=== PATIENT | female | born 1970 | race Caucasian/White ===

== ENCOUNTER 2016-04-20 10:57 | Emergency (ER) | payer OTHER ==
[2016-04-20] MEDS ORDERED: LABETALOL HCL 100 MG/20 ML VIAL As Ordered ONE (11:22)
[2016-04-20] MEDS ORDERED: ASPIRIN 81 MG CHEW TABLET As Ordered ONE (11:22)
[2016-04-20 11:27] LABS: BASO # 0.1 K/mm3 (0.0-0.2); EOS # 0.1 K/mm3 (0.0-0.50); EOS % 3.2 % (0.0-3.0); LARGE UNSTAINED CELL # 0.1 K/mm3 (0.0-0.4); LYMPH # 1.7 K/mm3 (1.5-4.5); LYMPH % 36.1 % (24.0-44.0); MEAN CORPUSCULAR HEMOGLOBIN 31.4 pg (27.0-33.0); MONO # 0.2 K/mm3 (0.0-0.8); MONO % 5.5 % (0.0-5.0); NEUTROPHILS # 2.3 K/mm3 (1.8-7.7); NEUTROPHILS % 51.2 % (36.0-66.0); PLATELET COUNT, AUTOMATED 254 k/mm3 (150-450); RED CELL DISTRIBUTION WIDTH 13.9 % (11.5-14.5); WHITE BLOOD COUNT 4.4 K/mm3 (4.0-10.0)
--- NOTE | 2016-04-20 11:47 | REP ---
Portable chest x-ray: Single view. History: Chest pain. Findings: EKG monitoring electrodes overlie the chest. The lungs are symmetrically aerated and clear. The pleural angles are sharp. Heart is not enlarged. Pulmonary vasculature is not increased. Impression: Negative portable chest x-ray. Signed by Kenneth Gatica MD 04/20/2016 02:58 P
[2016-04-20 11:49] LABS: ANION GAP 6 MEQ/L (8-16); BLOOD UREA NITROGEN 11 MG/DL (7-18); CALCIUM LEVEL 8.7 MG/DL (8.5-10.1); CARBON DIOXIDE LEVEL 28 MEQ/L (21-32); CHLORIDE LEVEL 105 MEQ/L (98-107); GLOMERULAR FILTRATION RATE > 60.0 (>58); GLUCOSE, FASTING 110 MG/DL (70-105); POTASSIUM SERUM 3.6 MEQ/L (3.5-5.1); SODIUM LEVEL 139 MEQ/L (136-145)
--- NOTE | 2016-04-20 13:05 | EDDOCDS ---
Nurse's Notes [facility] Name: Jerica Jernigan Age: 45 yrs Sex: Female : 1970 Arrival Date: 04/20/2016 Time: 10:57 Bed 10 Private MD: Merlene Page D Diagnosis: Other chest pain;Essential (primary) hypertension Presentation: 04/20 11:00 Presenting complaint: Patient states: Chest pain starting at 1030am today, also having dwg left arm achiness. Aspirin was not taken prior to arrival. Adult Sepsis Screening: The patient does not have new or worsening altered mentation. Patient's respiratory rate is less than 22. Systolic blood pressure is greater than 100. Patient has a qSOFA score of 0- Negative Sepsis Screen. Suicide/Homicide risk assessment- the patient denies having any suicidal and/or homicidal ideations and does not present with any other emotional, behavioral or mental health complaints. Status: Patient is not a library services assistant or dependent. Transition of care: patient was not received from another setting of care. Red Flag criteria, patient assessed and taken directly to a bed. 11:00 Acuity: JASPAL Level 2 dwg 11:00 Method Of Arrival: Walkin/Carried/Asstd dwg Triage Assessment: 11:03 General: Appears in no apparent distress, uncomfortable. Pain: Pain currently is 4 out dwg of 10 on a pain scale. HIV screening NA for this visit Offered previously. 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 Tylenol 325 mg Oral tab 2 tabs prn (Last dose: 04/20/2016 09:00) 2. Flonase 50 mcg/actuation Nasal spsn 1 spray 2 times per day (Last dose: 04/20/2016 09:00) - PMHx: Seasonal/environmental allergies; - PSHx: none; - Social history: Smoking status: Patient states was never smoker of tobacco. No barriers to communication noted, The patient speaks fluent German. - Family history: Not pertinent. - : The pt / caregiver states he / she is not on anticoagulants. Home medication list is obtained from the patient. - Exposure Risk Screening:: None identified. Screenin:17 Screening information is obtained from the patient. Fall risk: No risks identified. kr3 Assistance ADL's: requires no assistance with activities of daily living. Abuse/DV Screen: The patient / caregiver reports he/she is: not in a situation that causes fear, pain or injury. Nutritional screening: No deficits noted. Advance Directives: Currently, there is no health care proxy. home support is adequate. Assessment: 11:15 General: Appears comfortable, Behavior is anxious, cooperative. Pain: Location: chest kr3 Pain currently is 0 out of 10 on a pain scale. At worst was 5 out of 10 on a pain scale. Pain radiates to left arm. Pain: Quality of pain is described as aching, numbness. Cardiovascular: Rhythm is regular. Respiratory: Respiratory effort is even, unlabored. Derm: Skin is normal. 12:20 Reassessment: Patient appears in no apparent distress at this time. Patient states kr3 feeling better. 13:03 Reassessment: Patient appears in no apparent distress at this time. Patient states kr3 feeling better. Neurological: No deficits noted. Respiratory: Respiratory effort is even, unlabored. Derm: Skin is normal. Vital Signs: 11:00 BP 199 / 112; Pulse 79; Resp 18; Temp 98.0; Pulse Ox 95% ; Weight 88.9 kg; Height 5 ft. elp 7 in. (170.18 cm); Pain 4/10; 11:43 BP 179 / 113; Pulse 64; kr3 12:28 BP 165 / 93 (auto/); kr3 12:29 Pulse 56 MON; Pulse Ox 95% ; kr3 13:02 BP 149 / 79; Pulse 58; Resp 16; Temp 98.1(O); Pulse Ox 96% on R/A; Pain 1/10; kr3 11:00 Body Mass Index 30.70 (88.90 kg, 170.18 cm) elp Vitals: 11:00 Log In Time: April 20, 2016 at 10:59. RN notified that patient meets Red Flag elp criteria. ED Course: 10:59 Patient visited by Catalina Meadows PCA. elp 10:59 Patient moved to Waiting elp 11:00 Merlene Page is Private Physician. elp 11:00 Patient visited by Catalina Meadows PCA. elp 11:01 Triage Initiated dwg 11:03 Patient moved to 10 dw 11:08 Seth Mccoy PA is PHCP. btw 11:08 Tammi Mayer MD is Attending Physician. btw 11:09 Patient visited by Seth Mccoy PA. btw 11:12 Patient visited by Nikita Jones PCA. jrd 11:12 Pt greeted and oriented to ED. Patient advised of names of staff involved in care, jrd location of call mejias, wait times and NPO status. Accompanied by Patient has correct armband on for positive identification. Placed in gown. Bed in low position. Call light in reach. Side rails up X2. campus monitor on. Pulse ox on. NIBP on. 11:12 EKG done. (by ED staff). Reviewed by Seth FOX. jrd 11:15 Basic Metabolic Profile Sent. kr3 11:15 CBC with Diff Sent. kr3 11:15 Cardiac Injury Profile Sent. kr3 11:15 Troponin Sent. kr3 11:15 Inserted saline lock: 20 gauge in left antecubital area and blood collected. kr3 11:17 The patient / caregiver is instructed regarding the plan of care and ED course. kr3 11:37 [facility] [place] was scanned into [employer] and attached to record. lg 11:44 Patient visited by Monica Viveros RN. kr3 12:07 portable chest Returned. EDMS 12:39 Merlene Page is Referral Physician. btw 13:01 No procedures done that require assistance. kr3 13:03 Discontinued lock intact, bleeding controlled, pressure dressing applied, No kr3 redness/swelling at site. Administered Medications: 11:27 Drug: Aspirin 324 mg [aspirin 81 mg chewable tablet (4 tabs)] Route: PO; kr3 11:28 Drug: Labetalol 10 mg [labetalol 5 mg/mL intravenous solution (2 mL)] Route: IVP; Rate: kr3 bolus; Infused Over: 2 mins; Site: right antecubital; 11:43 Follow up: BP 179 / 113; Pulse 64 bpm kr3 Order Results: Lab Order: Basic Metabolic Profile; SPEC'M 04/20/16 11:13 Test: GLUCOSE, FASTING; Value: 110; Range: 70-105; Abnormal: Above high normal; Units: MG/DL; Status: F Test: BLOOD UREA NITROGEN; Value: 11; Range: 7-18; Units: MG/DL; Status: F Test: CREATININE FOR GFR; Value: 0.90; Range: 0.55-1.02; Units: MG/DL; Status: F Test: GLOMERULAR FILTRATION RATE; Value: > 60.0; Range: >58; Status: F Test: SODIUM LEVEL; Value: 139; Range: 136-145; Units: MEQ/L; Status: F Test: POTASSIUM SERUM; Value: 3.6; Range: 3.5-5.1; Units: MEQ/L; Status: F Test: CHLORIDE LEVEL; Value: 105; Range: 98-107; Units: MEQ/L; Status: F Test: CARBON DIOXIDE LEVEL; Value: 28; Range: 21-32; Units: MEQ/L; Status: F Test: ANION GAP; Value: 6; Range: 8-16; Abnormal: Below low normal; Units: MEQ/L; Status: F Test: CALCIUM LEVEL; Value: 8.7; Range: 8.5-10.1; Units: MG/DL; Status: F Test Note: ; Units are mL/min/1.73 m2 Chronic Kidney Disease Staging per NKF: Stage I & II GFR >=60 Normal to Mildly Decreased Stage III GFR 30-59 Moderately Decreased Stage IV GFR 15-29 Severely Decreased Stage V GFR <15 Very Little GFR Left ESRD GFR <15 on ORDINARY SEAMAN Lab Order: CBC with Diff; SPEC'M 04/20/16 11:13 Test: WHITE BLOOD COUNT; Value: 4.4; Range: 4.0-10.0; Units: K/mm3; Status: F Test: RED BLOOD COUNT; Value: 4.30; Range: 4.00-5.40; Units: M/mm3; Status: F Test: HEMOGLOBIN; Value: 13.5; Range: 12.0-16.0; Units: g/dl; Status: F Test: HEMATOCRIT; Value: 40.8; Range: 36.0-47.0; Units: %; Status: F Test: MEAN CORPUSCULAR VOLUME; Value: 95.0; Range: 80.0-96.0; Units: fl; Status: F Test: MEAN CORPUSCULAR HEMOGLOBIN; Value: 31.4; Range: 27.0-33.0; Units: pg; Status: F Test: MEAN CORPUSCULAR HGB CONC; Value: 33.0; Range: 32.0-36.5; Units: g/dl; Status: F Test: RED CELL DISTRIBUTION WIDTH; Value: 13.9; Range: 11.5-14.5; Units: %; Status: F Test: PLATELET COUNT, AUTOMATED; Value: 254; Range: 150-450; Units: k/mm3; Status: F Test: NEUTROPHILS %; Value: 51.2; Range: 36.0-66.0; Units: %; Status: F Test: LYMPH %; Value: 36.1; Range: 24.0-44.0; Units: %; Status: F Test: MONO %; Value: 5.5; Range: 0.0-5.0; Abnormal: Above high normal; Units: %; Status: F Test: EOS %; Value: 3.2; Range: 0.0-3.0; Abnormal: Above high normal; Units: %; Status: F Test: BASO %; Value: 2.0; Range: 0.0-1.0; Abnormal: Above high normal; Units: %; Status: F Test: LARGE UNSTAINED CELL %; Value: 2.0; Range: 0.0-4.0; Units: %; Status: F Test: NEUTROPHILS #; Value: 2.3; Range: 1.8-7.7; Units: K/mm3; Status: F Test: LYMPH #; Value: 1.7; Range: 1.5-4.5; Units: K/mm3; Status: F Test: MONO #; Value: 0.2; Range: 0.0-0.8; Units: K/mm3; Status: F Test: EOS #; Value: 0.1; Range: 0.0-0.50; Units: K/mm3; Status: F Test: BASO #; Value: 0.1; Range: 0.0-0.2; Units: K/mm3; Status: F Test: LARGE UNSTAINED CELL #; Value: 0.1; Range: 0.0-0.4; Units: K/mm3; Status: F Lab Order: Cardiac Injury Profile; SPEC'M 04/20/16 11:13 Test: CPK CREATINE PHOSPHOKINASE; Value: 71; Range: 26-192; Units: U/L; Status: F Test: CK-MB VALUE MASS; Value: 1.0; Range: 0.0-3.6; Units: NG/ML; Status: F Test: MB/CK RELATIVE INDEX; Value: 1.40; Range: < OR =4; Status: F Test Note: ; DIAGNOSIS CRITERIA MMB ng/ml Relative Index (RI) NON-AMI < or = 5 N/A VO ZONE > 5 < or = 4 AMI > 5 > 4 Lab Order: Troponin; SPEC'M 04/20/16 11:13 Test: TROPONIN I; Value: < 0.02; Range: < 0.10; Units: NG/ML; Status: F Test Note: ; Troponin I Reference Interval for ApeniMED LOCI: 99th Percentile= 0.00-0.045 ng/ml Risk Stratification: <= 0.10 ng/ml Decreased Risk for Adverse Clinical Events. 0.10-1.50 ng/ml Increased Risk for Adverse Clinical Events. Evaluation of additional criterion and/or repeat testing in 2-6 hours is suggested to rule out myocardial damage. >= 1.50 ng/ml Indicative of Myocardial Injury. Radiology Order: portable chest Test: portable chest REASON FOR EXAMINATION: Chest Pain; Portable chest x-ray: Single view.; ; History: Chest pain.; ; Findings: EKG monitoring electrodes overlie the chest. The lungs are; symmetrically aerated and clear. The pleural angles are sharp. Heart is not; enlarged. Pulmonary vasculature is not increased.; ; Impression:; ; Negative portable chest x-ray.; ; ; ; ; Unreviewed; Outcome: 12:39 Discharge ordered by Provider. btw 13:02 Discharge Assessment: patient administered narcotics - no. The following High Risk kr3 Discharge criteria are identified: None. Discharged to home ambulatory, with family. Condition: improved. Discharge instructions given to patient, Instructed on discharge instructions, follow up and referral plans. medication usage, Demonstrated understanding of instructions, medications, Pt was receptive of discharge instructions/ teaching. Prescriptions given X 1, Work note provided to patient. No special radiology studies were completed. Property sent home with patient. 13:03 Patient left the ED. kr3 Signatures: Dispatcher [facility] Rafal Mariee RN RN Dylan Alvarez, Monica Werner lg,RN RN kr3 Seth Mccoy, RUDDY PA btw Abdiel, Catalina, ACID CUTTER ACID CUTTER elp Nikita Jones, ACID CUTTER ACID CUTTER jrd MTDD
--- NOTE | 2016-04-20 13:05 | EDDOCDS ---
Physician Documentation [facility] Name: Jerica Jernigan Age: 45 yrs Sex: Female : 1970 Arrival Date: 04/20/2016 Time: 10:57 Bed 10 Private MD: Merlene Page D Disposition: 04/20/16 12:39 Discharged to Home/Self Care. Impression: Other chest pain, Essential (primary) hypertension. - Condition is Stable. - Discharge Instructions: Nonspecific Chest Pain, Hypertension, Managing Your High Blood Pressure. - Prescriptions for Lisinopril 10 mg Oral Tablet - take 1 tablet by ORAL route once daily; 20 tablet. - Medication Reconciliation, Local Pharmacy Hours form. - Follow up: Merlene Page; When: Call to arrange an appointment; Reason: Further diagnostic work-up, Recheck today's complaints, Continuance of care. - Problem is new. - Symptoms are unchanged. Historical: - Allergies: Amoxicillin; - Home Meds: 1. Tylenol 325 mg Oral tab 2 tabs prn (Last dose: 04/20/2016 09:00) 2. Flonase 50 mcg/actuation Nasal spsn 1 spray 2 times per day (Last dose: 04/20/2016 09:00) - PMHx: Seasonal/environmental allergies; - PSHx: none; - Social history: Smoking status: Patient states was never smoker of tobacco. No barriers to communication noted, The patient speaks fluent Portuguese. - Family history: Not pertinent. - : The pt / caregiver states he / she is not on anticoagulants. Home medication list is obtained from the patient. - Exposure Risk Screening:: None identified. RIB PULLER: 04/20 11:03 LMP 04/16/2016 [facility] Vital Signs: 11:00 BP 199 / 112; Pulse 79; Resp 18; Temp 98.0; Pulse Ox 95% ; Weight 88.9 kg / 195.99 lbs; elp Height 5 ft. 7 in. (170.18 cm); Pain 4/10; 11:43 BP 179 / 113; Pulse 64; kr3 12:28 BP 165 / 93 (auto/); kr3 12:29 Pulse 56 MON; Pulse Ox 95% ; kr3 13:02 BP 149 / 79; Pulse 58; Resp 16; Temp 98.1(O); Pulse Ox 96% on R/A; Pain 10; kr3 11:00 Body Mass Index 30.70 (88.90 kg, 170.18 cm) elp MDM: 11:04 Donor Services Team Leader/Pulse Ox/q 30 min VS ordered. sd1 11:04 IV Saline Lock ordered. sd1 11:04 Rhythm Strip to chart ordered. sd1 11:04 Undress patient appropriately for examination ordered. sd1 11:05 portable chest Ordered. EDMS 11:05 Basic Metabolic Profile Ordered. EDMS 11:06 CBC with Diff Ordered. EDMS 11:06 Cardiac Injury Profile Ordered. EDMS 11:06 Troponin Ordered. EDMS 11:06 ECG WITH READING ER PHYS+CARDIAG ordered. EDMS 11:18 Aspirin 324 mg PO once ordered. btw 11:18 Labetalol 10 mg IVP at bolus once over 2 mins ordered. btw 11:28 Financial registration complete. lg 11:37 [facility] Payment Agreement was scanned into [employer] and attached to record. lg 11:52 Basic Metabolic Profile Reviewed. btw 11:52 CBC with Diff Reviewed. btw 11:52 Cardiac Injury Profile Reviewed. btw 11:52 Troponin Reviewed. btw Administered Medications: 11:27 Drug: Aspirin 324 mg [aspirin 81 mg chewable tablet (4 tabs)] Route: PO; kr3 11:28 Drug: Labetalol 10 mg [labetalol 5 mg/mL intravenous solution (2 mL)] Route: IVP; Rate: kr3 bolus; Infused Over: 2 mins; Site: right antecubital; 11:43 Follow up: BP 179 / 113; Pulse 64 bpm kr3 Signatures: Dispatcher [employer] [facility] Tammi Mayer MD MD sd1 Rafal Marley, RN RN Dylan Alvarez, Manfred Reg lg Monica Viveros RN RN kr3 Seth Mccoy PA PA btw The chart was reviewed and I authenticate all verbal orders and agree with the evaluation and treatment provided.Attachments: 11:37 [facility] Payment Agreement lg MTDD
--- NOTE | 2016-04-21 07:18 | ECGEPIP ---
Stationary ECG Study [facility] - ED Test Date: 2016-04-20 Pat Name: ANITA BRITO Department: Room: - Gender: F Microbiological Analyst: lucinda : 1970 Requested By: Tammi Mayer Order Number: [id number] Reading MD: Tammi Mayer Measurements Intervals [place] Rate: 79 P: 52 ND: 144 QRS: 47 QRSD: 94 T: 7 QT: 380 QTc: 437 Interpretive Statements SINUS RHYTHM NO PRIOR FOR COMPARISON Electronically Signed On 04-21-2016 7:17:52 EST by Tammi Mayer
--- NOTE | 2016-04-22 14:05 | EDDOCDS ---
Nurse's Notes [facility] Name: Jerica Jernigan Age: 45 yrs Sex: Female : 1970 Arrival Date: 04/20/2016 Time: 10:57 Bed 10 Private MD: Merlene Page D Diagnosis: Other chest pain;Essential (primary) hypertension Presentation: 04/20 11:00 Presenting complaint: Patient states: Chest pain starting at 1030am today, also having dwg left arm achiness. Aspirin was not taken prior to arrival. Adult Sepsis Screening: The patient does not have new or worsening altered mentation. Patient's respiratory rate is less than 22. Systolic blood pressure is greater than 100. Patient has a qSOFA score of 0- Negative Sepsis Screen. Suicide/Homicide risk assessment- the patient denies having any suicidal and/or homicidal ideations and does not present with any other emotional, behavioral or mental health complaints. Status: Patient is not a food service specialist or dependent. Transition of care: patient was not received from another setting of care. Red Flag criteria, patient assessed and taken directly to a bed. 11:00 Acuity: JASPAL Level 2 dwg 11:00 Method Of Arrival: Walkin/Carried/Asstd dwg Triage Assessment: 11:03 General: Appears in no apparent distress, uncomfortable. Pain: Pain currently is 4 out dwg of 10 on a pain scale. HIV screening NA for this visit Offered previously. 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 Tylenol 325 mg Oral tab 2 tabs prn (Last dose: 04/20/2016 09:00) 2. Flonase 50 mcg/actuation Nasal spsn 1 spray 2 times per day (Last dose: 04/20/2016 09:00) - PMHx: Seasonal/environmental allergies; - PSHx: none; - Social history: Smoking status: Patient states was never smoker of tobacco. No barriers to communication noted, The patient speaks fluent Austrian. - Family history: Not pertinent. - : The pt / caregiver states he / she is not on anticoagulants. Home medication list is obtained from the patient. - Exposure Risk Screening:: None identified. Screenin:17 Screening information is obtained from the patient. Fall risk: No risks identified. kr3 Assistance ADL's: requires no assistance with activities of daily living. Abuse/DV Screen: The patient / caregiver reports he/she is: not in a situation that causes fear, pain or injury. Nutritional screening: No deficits noted. Advance Directives: Currently, there is no health care proxy. home support is adequate. Assessment: 11:15 General: Appears comfortable, Behavior is anxious, cooperative. Pain: Location: chest kr3 Pain currently is 0 out of 10 on a pain scale. At worst was 5 out of 10 on a pain scale. Pain radiates to left arm. Pain: Quality of pain is described as aching, numbness. Cardiovascular: Rhythm is regular. Respiratory: Respiratory effort is even, unlabored. Derm: Skin is normal. 12:20 Reassessment: Patient appears in no apparent distress at this time. Patient states kr3 feeling better. 13:03 Reassessment: Patient appears in no apparent distress at this time. Patient states kr3 feeling better. Neurological: No deficits noted. Respiratory: Respiratory effort is even, unlabored. Derm: Skin is normal. Vital Signs: 11:00 BP 199 / 112; Pulse 79; Resp 18; Temp 98.0; Pulse Ox 95% ; Weight 88.9 kg; Height 5 ft. elp 7 in. (170.18 cm); Pain 4/10; 11:43 BP 179 / 113; Pulse 64; kr3 12:28 BP 165 / 93 (auto/); kr3 12:29 Pulse 56 MON; Pulse Ox 95% ; kr3 13:02 BP 149 / 79; Pulse 58; Resp 16; Temp 98.1(O); Pulse Ox 96% on R/A; Pain 1/10; kr3 11:00 Body Mass Index 30.70 (88.90 kg, 170.18 cm) elp Vitals: 11:00 Log In Time: April 20, 2016 at 10:59. RN notified that patient meets Red Flag elp criteria. ED Course: 10:59 Patient visited by Catalina Meadows PCA. elp 10:59 Patient moved to Waiting elp 11:00 Merlene Page is Private Physician. elp 11:00 Patient visited by Catalina Meadows PCA. elp 11:01 Triage Initiated dwg 11:03 Patient moved to 10 dw 11:08 Seth Mccoy PA is PHCP. btw 11:08 Tammi Mayer MD is Attending Physician. btw 11:09 Patient visited by Seth Mccoy PA. btw 11:12 Patient visited by Nikita Jones PCA. jrd 11:12 Pt greeted and oriented to ED. Patient advised of names of staff involved in care, jrd location of call mejias, wait times and NPO status. Accompanied by Patient has correct armband on for positive identification. Placed in gown. Bed in low position. Call light in reach. Side rails up X2. teletypesetter monitor on. Pulse ox on. NIBP on. 11:12 EKG done. (by ED staff). Reviewed by Seth FOX. jrd 11:15 Basic Metabolic Profile Sent. kr3 11:15 CBC with Diff Sent. kr3 11:15 Cardiac Injury Profile Sent. kr3 11:15 Troponin Sent. kr3 11:15 Inserted saline lock: 20 gauge in left antecubital area and blood collected. kr3 11:17 The patient / caregiver is instructed regarding the plan of care and ED course. kr3 11:37 [facility] [place] [place] Agreement was scanned into [employer] and attached to record. lg 11:44 Patient visited by Monica Viveros RN. kr3 12:07 portable chest Returned. EDMS 12:39 Merlene Page is Referral Physician. btw 13:01 No procedures done that require assistance. kr3 13:03 Discontinued lock intact, bleeding controlled, pressure dressing applied, No kr3 redness/swelling at site. 14:47 T-Sheet-- Draft Copy was scanned into [employer] and attached to record. gb 14:48 ECG/EKG was scanned into [employer] and attached to record. gb 14:48 Trend VS was scanned into [employer] and attached to record. gb 04/21 07:52 EKG-ADULT Returned. EDMS Administered Medications: 04/20 11:27 Drug: Aspirin 324 mg [aspirin 81 mg chewable tablet (4 tabs)] Route: PO; kr3 11:28 Drug: Labetalol 10 mg [labetalol 5 mg/mL intravenous solution (2 mL)] Route: IVP; Rate: kr3 bolus; Infused Over: 2 mins; Site: right antecubital; 11:43 Follow up: BP 179 / 113; Pulse 64 bpm kr3 Attachments: 14:48 Trend VS gb Order Results: Lab Order: Basic Metabolic Profile; SPEC'04/20/16 11:13 Test: GLUCOSE, FASTING; Value: 110; Range: 70-105; Abnormal: Above high normal; Units: MG/DL; Status: F Test: BLOOD UREA NITROGEN; Value: 11; Range: 7-18; Units: MG/DL; Status: F Test: CREATININE FOR GFR; Value: 0.90; Range: 0.55-1.02; Units: MG/DL; Status: F Test: GLOMERULAR FILTRATION RATE; Value: > 60.0; Range: >58; Status: F Test: SODIUM LEVEL; Value: 139; Range: 136-145; Units: MEQ/L; Status: F Test: POTASSIUM SERUM; Value: 3.6; Range: 3.5-5.1; Units: MEQ/L; Status: F Test: CHLORIDE LEVEL; Value: 105; Range: 98-107; Units: MEQ/L; Status: F Test: CARBON DIOXIDE LEVEL; Value: 28; Range: 21-32; Units: MEQ/L; Status: F Test: ANION GAP; Value: 6; Range: 8-16; Abnormal: Below low normal; Units: MEQ/L; Status: F Test: CALCIUM LEVEL; Value: 8.7; Range: 8.5-10.1; Units: MG/DL; Status: F Test Note: ; Units are mL/min/1.73 m2 Chronic Kidney Disease Staging per NKF: Stage I & II GFR >=60 Normal to Mildly Decreased Stage III GFR 30-59 Moderately Decreased Stage IV GFR 15-29 Severely Decreased Stage V GFR <15 Very Little GFR Left ESRD GFR <15 on RETAIL LOSS PREVENTION SPECIALIST Lab Order: CBC with Diff; SPEC'04/20/16 11:13 Test: WHITE BLOOD COUNT; Value: 4.4; Range: 4.0-10.0; Units: K/mm3; Status: F Test: RED BLOOD COUNT; Value: 4.30; Range: 4.00-5.40; Units: M/mm3; Status: F Test: HEMOGLOBIN; Value: 13.5; Range: 12.0-16.0; Units: g/dl; Status: F Test: HEMATOCRIT; Value: 40.8; Range: 36.0-47.0; Units: %; Status: F Test: MEAN CORPUSCULAR VOLUME; Value: 95.0; Range: 80.0-96.0; Units: fl; Status: F Test: MEAN CORPUSCULAR HEMOGLOBIN; Value: 31.4; Range: 27.0-33.0; Units: pg; Status: F Test: MEAN CORPUSCULAR HGB CONC; Value: 33.0; Range: 32.0-36.5; Units: g/dl; Status: F Test: RED CELL DISTRIBUTION WIDTH; Value: 13.9; Range: 11.5-14.5; Units: %; Status: F Test: PLATELET COUNT, AUTOMATED; Value: 254; Range: 150-450; Units: k/mm3; Status: F Test: NEUTROPHILS %; Value: 51.2; Range: 36.0-66.0; Units: %; Status: F Test: LYMPH %; Value: 36.1; Range: 24.0-44.0; Units: %; Status: F Test: MONO %; Value: 5.5; Range: 0.0-5.0; Abnormal: Above high normal; Units: %; Status: F Test: EOS %; Value: 3.2; Range: 0.0-3.0; Abnormal: Above high normal; Units: %; Status: F Test: BASO %; Value: 2.0; Range: 0.0-1.0; Abnormal: Above high normal; Units: %; Status: F Test: LARGE UNSTAINED CELL %; Value: 2.0; Range: 0.0-4.0; Units: %; Status: F Test: NEUTROPHILS #; Value: 2.3; Range: 1.8-7.7; Units: K/mm3; Status: F Test: LYMPH #; Value: 1.7; Range: 1.5-4.5; Units: K/mm3; Status: F Test: MONO #; Value: 0.2; Range: 0.0-0.8; Units: K/mm3; Status: F Test: EOS #; Value: 0.1; Range: 0.0-0.50; Units: K/mm3; Status: F Test: BASO #; Value: 0.1; Range: 0.0-0.2; Units: K/mm3; Status: F Test: LARGE UNSTAINED CELL #; Value: 0.1; Range: 0.0-0.4; Units: K/mm3; Status: F Lab Order: Cardiac Injury Profile; SPEC'M 04/20/16 11:13 Test: CPK CREATINE PHOSPHOKINASE; Value: 71; Range: 26-192; Units: U/L; Status: F Test: CK-MB VALUE MASS; Value: 1.0; Range: 0.0-3.6; Units: NG/ML; Status: F Test: MB/CK RELATIVE INDEX; Value: 1.40; Range: < OR =4; Status: F Test Note: ; DIAGNOSIS CRITERIA MMB ng/ml Relative Index (RI) NON-AMI < or = 5 N/A VO ZONE > 5 < or = 4 AMI > 5 > 4 Lab Order: Troponin; SPEC'M 04/20/16 11:13 Test: TROPONIN I; Value: < 0.02; Range: < 0.10; Units: NG/ML; Status: F Test Note: ; Troponin I Reference Interval for [employer] LOCI: 99th Percentile= 0.00-0.045 ng/ml Risk Stratification: <= 0.10 ng/ml Decreased Risk for Adverse Clinical Events. 0.10-1.50 ng/ml Increased Risk for Adverse Clinical Events. Evaluation of additional criterion and/or repeat testing in 2-6 hours is suggested to rule out myocardial damage. >= 1.50 ng/ml Indicative of Myocardial Injury. Radiology Order: portable chest Test: portable chest REASON FOR EXAMINATION: Chest Pain; Portable chest x-ray: Single view.; ; History: Chest pain.; ; Findings: EKG monitoring electrodes overlie the chest. The lungs are; symmetrically aerated and clear. The pleural angles are sharp. Heart is not; enlarged. Pulmonary vasculature is not increased.; ; Impression:; ; Negative portable chest x-ray.; ; ; Signed by; Kenneth Gatica MD 04/20/2016 02:58 P; Radiology Order: EKG-ADULT Test: EKG-ADULT REASON FOR EXAMINATION: Chest Pain; Stationary ECG Study; [facility] - ED; ; Test Date: 2016-04-20; Pat Name: [facility] Department:; Room: -; Gender: F Radio Frequency Technician: lucinda; : 1970 Requested By: Tammi Mayer; Order Number: [id number] Reading MD: Tammi Mayer; Measurements; Intervals [place]; Rate: 79 P: 52; FL: 144 QRS: 47; QRSD: 94 T: 7; QT: 380; QTc: 437; Interpretive Statements; SINUS RHYTHM; NO PRIOR FOR COMPARISON; Electronically Signed On 04-21-2016 7:17:52 EST by Tammi Mayer; Outcome: 12:39 Discharge ordered by Provider. btw 13:02 Discharge Assessment: patient administered narcotics - no. The following High Risk kr3 Discharge criteria are identified: None. Discharged to home ambulatory, with family. Condition: improved. Discharge instructions given to patient, Instructed on discharge instructions, follow up and referral plans. medication usage, Demonstrated understanding of instructions, medications, Pt was receptive of discharge instructions/ teaching. Prescriptions given X 1, Work note provided to patient. No special radiology studies were completed. Property sent home with patient. 13:03 Patient left the ED. kr3 Signatures: Dispatcher [employer] EDRafal Stevenson, RN RN dwg Lesley Connelly, Reg Reg gb Dylan Johnson, Reg Reg Monica Vasquez,RN RN kr3 Seth Mccoy PA PA btw Catalina Meadows, TOLL LINE MECHANIC TOLL LINE MECHANIC elp Nikita Jones, TOLL LINE MECHANIC TOLL LINE MECHANIC jrterence Chart Complete MTDD
--- NOTE | 2016-04-22 14:05 | EDDOCDS ---
Physician Documentation [facility] Name: Jerica Jernigan Age: 45 yrs Sex: Female : 1970 Arrival Date: 04/20/2016 Time: 10:57 Bed 10 Private MD: Merlene Page D Disposition: 04/20/16 12:39 Discharged to Home/Self Care. Impression: Other chest pain, Essential (primary) hypertension. - Condition is Stable. - Discharge Instructions: Nonspecific Chest Pain, Hypertension, Managing Your High Blood Pressure. - Prescriptions for Lisinopril 10 mg Oral Tablet - take 1 tablet by ORAL route once daily; 20 tablet. - Medication Reconciliation, Local Pharmacy Hours form. - Follow up: Merlene Page; When: Call to arrange an appointment; Reason: Further diagnostic work-up, Recheck today's complaints, Continuance of care. - Problem is new. - Symptoms are unchanged. Historical: - Allergies: Amoxicillin; - Home Meds: 1. Tylenol 325 mg Oral tab 2 tabs prn (Last dose: 04/20/2016 09:00) 2. Flonase 50 mcg/actuation Nasal spsn 1 spray 2 times per day (Last dose: 04/20/2016 09:00) - PMHx: Seasonal/environmental allergies; - PSHx: none; - Social history: Smoking status: Patient states was never smoker of tobacco. No barriers to communication noted, The patient speaks fluent South Korean. - Family history: Not pertinent. - : The pt / caregiver states he / she is not on anticoagulants. Home medication list is obtained from the patient. - Exposure Risk Screening:: None identified. 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 7 in. (170.18 cm); Pain 4/10; 11:43 BP 179 / 113; Pulse 64; kr3 12:28 BP 165 / 93 (auto/); kr3 12:29 Pulse 56 MON; Pulse Ox 95% ; kr3 13:02 BP 149 / 79; Pulse 58; Resp 16; Temp 98.1(O); Pulse Ox 96% on R/A; Pain /10; kr3 11:00 Body Mass Index 30.70 (88.90 kg, 170.18 cm) elp MDM: 11:04 Fork Lift Mechanic/Pulse Ox/q 30 min VS ordered. sd1 11:04 IV Saline Lock ordered. sd1 11:04 Rhythm Strip to chart ordered. sd1 11:04 Undress patient appropriately for examination ordered. sd1 11:05 portable chest Ordered. EDMS 11:05 Basic Metabolic Profile Ordered. EDMS 11:06 CBC with Diff Ordered. EDMS 11:06 Cardiac Injury Profile Ordered. EDMS 11:06 Troponin Ordered. EDMS 11:06 ECG WITH READING ER PHYS+CARDIAG ordered. EDMS 11:18 Aspirin 324 mg PO once ordered. btw 11:18 Labetalol 10 mg IVP at bolus once over 2 mins ordered. btw 11:28 Financial registration complete. lg 11:37 [facility] Payment Agreement was scanned into [employer] and attached to record. lg 11:52 Basic Metabolic Profile Reviewed. btw 11:52 CBC with Diff Reviewed. btw 11:52 Cardiac Injury Profile Reviewed. btw 11:52 Troponin Reviewed. btw 14:47 T-Sheet-- Draft Copy was scanned into [employer] and attached to record. gb 14:48 ECG/EKG was scanned into [employer] and attached to record. gb 14:48 Trend VS was scanned into [employer] and attached to record. gb Administered Medications: 11:27 Drug: Aspirin 324 mg [aspirin 81 mg chewable tablet (4 tabs)] Route: PO; kr3 11:28 Drug: Labetalol 10 mg [labetalol 5 mg/mL intravenous solution (2 mL)] Route: IVP; Rate: kr3 bolus; Infused Over: 2 mins; Site: right antecubital; 11:43 Follow up: BP 179 / 113; Pulse 64 bpm kr3 Signatures: Dispatcher [employer] EDTammi Whittington MD MD sd1 Rafal Marley, RN RN dwg Lesley Connelly, Reg Reg gb Dylan Johnson, Reg Reg lg Monica Viveros RN RN kr3 Seth Mccoy PA PA btw The chart was reviewed and I authenticate all verbal orders and agree with the evaluation and treatment provided.Attachments: 11:37 [facility] lg 14:47 T-Sheet-- Draft Copy gb 14:48 ECG/EKG gb Chart Complete MTDD
--- NOTE | 2016-04-22 14:05 | EDDOCDS ---
Physician Documentation [facility] Name: Jerica Jernigan Age: 45 yrs Sex: Female : 1970 Arrival Date: 04/20/2016 Time: 10:57 Bed 10 Private MD: Merlene Page D Disposition: 04/20/16 12:39 Discharged to Home/Self Care. Impression: Other chest pain, Essential (primary) hypertension. - Condition is Stable. - Discharge Instructions: Nonspecific Chest Pain, Hypertension, Managing Your High Blood Pressure. - Prescriptions for Lisinopril 10 mg Oral Tablet - take 1 tablet by ORAL route once daily; 20 tablet. - Medication Reconciliation, Local Pharmacy Hours form. - Follow up: Merlene Page; When: Call to arrange an appointment; Reason: Further diagnostic work-up, Recheck today's complaints, Continuance of care. - Problem is new. - Symptoms are unchanged. Historical: - Allergies: Amoxicillin; - Home Meds: 1. Tylenol 325 mg Oral tab 2 tabs prn (Last dose: 04/20/2016 09:00) 2. Flonase 50 mcg/actuation Nasal spsn 1 spray 2 times per day (Last dose: 04/20/2016 09:00) - PMHx: Seasonal/environmental allergies; - PSHx: none; - Social history: Smoking status: Patient states was never smoker of tobacco. No barriers to communication noted, The patient speaks fluent [place] Sudanese. - Family history: Not pertinent. - : The pt / caregiver states he / she is not on anticoagulants. Home medication list is obtained from the patient. - Exposure Risk Screening:: None identified. SPECIAL EVENTS COORDINATOR: 04/20 11:03 LMP 04/16/2016 [facility] Vital Signs: 11:00 BP 199 / 112; Pulse 79; Resp 18; Temp 98.0; Pulse Ox 95% ; Weight 88.9 kg / 195.99 lbs; elp Height 5 ft. 7 in. (170.18 cm); Pain 4/10; 11:43 BP 179 / 113; Pulse 64; kr3 12:28 BP 165 / 93 (auto/); kr3 12:29 Pulse 56 MON; Pulse Ox 95% ; kr3 13:02 BP 149 / 79; Pulse 58; Resp 16; Temp 98.1(O); Pulse Ox 96% on R/A; Pain /10; kr3 11:00 Body Mass Index 30.70 (88.90 kg, 170.18 cm) elp MDM: 11:04 Explosive Operator Grenade/Pulse Ox/q 30 min VS ordered. sd1 11:04 IV Saline Lock ordered. sd1 11:04 Rhythm Strip to chart ordered. sd1 11:04 Undress patient appropriately for examination ordered. sd1 11:05 portable chest Ordered. EDMS 11:05 Basic Metabolic Profile Ordered. EDMS 11:06 CBC with Diff Ordered. EDMS 11:06 Cardiac Injury Profile Ordered. EDMS 11:06 Troponin Ordered. EDMS 11:06 ECG WITH READING ER PHYS+CARDIAG ordered. EDMS 11:18 Aspirin 324 mg PO once ordered. btw 11:18 Labetalol 10 mg IVP at bolus once over 2 mins ordered. btw 11:28 Financial registration complete. lg 11:37 [facility] Payment Agreement was scanned into [employer] and attached to record. lg 11:52 Basic Metabolic Profile Reviewed. btw 11:52 CBC with Diff Reviewed. btw 11:52 Cardiac Injury Profile Reviewed. btw 11:52 Troponin Reviewed. btw 14:47 T-Sheet-- Draft Copy was scanned into [employer] and attached to record. gb 14:48 ECG/EKG was scanned into [employer] and attached to record. gb 14:48 Trend VS was scanned into [employer] and attached to record. gb Administered Medications: 11:27 Drug: Aspirin 324 mg [aspirin 81 mg chewable tablet (4 tabs)] Route: PO; kr3 11:28 Drug: Labetalol 10 mg [labetalol 5 mg/mL intravenous solution (2 mL)] Route: IVP; Rate: kr3 bolus; Infused Over: 2 mins; Site: right antecubital; 11:43 Follow up: BP 179 / 113; Pulse 64 bpm kr3 Signatures: Dispatcher [employer] EDTammi Whittington MD MD sd1 Rafal Marley, RN RN dwg Lesley Connelly, Reg Reg gb Dylan Johnson, Reg Reg lg Monica Viveros RN RN kr3 Seth Mccoy PA PA btw The chart was reviewed and I authenticate all verbal orders and agree with the evaluation and treatment provided.Attachments: 11:37 [facility] Payment Agreement lg 14:47 T-Sheet-- Draft Copy gb 14:48 ECG/EKG gb Chart Complete MTDD
== END 2016-04-20 13:03 | disposition home or self-care (01) ==
LOC: M ED 10:57
DX: R07.9 Chest pain, unspecified (principal); J30.2 Other seasonal allergic rhinitis; Z88.1 Allergy status to other antibiotic agents

== ENCOUNTER → 2016-05-15 | Outpatient (REF) | payer OTHER ==
[2016-05-15 12:22] LABS: ALBUMIN 4.1 GM/DL (3.2-5.2); ALBUMIN/GLOBULIN RATIO 1.17 (1.00-1.93); ALKALINE PHOSPHATASE 87 U/L (45-117); ALT/SGPT 20 U/L (12-78); ANION GAP 8 MEQ/L (8-16); AST/SGOT 14 U/L (15-37); BILIRUBIN,TOTAL 0.3 MG/DL (0.2-1.0); BLOOD UREA NITROGEN 16 MG/DL (7-18); CALCIUM LEVEL 9.3 MG/DL (8.5-10.1); CARBON DIOXIDE LEVEL 29 MEQ/L (21-32); CHLORIDE LEVEL 106 MEQ/L (98-107); CHOLESTEROL LEVEL 231 MG/DL (<200); CREATININE FOR GFR 0.86 MG/DL (0.55-1.02); GLOMERULAR FILTRATION RATE > 60.0 (>58); GLUCOSE, FASTING 96 MG/DL (70-105); POTASSIUM SERUM 4.5 MEQ/L (3.5-5.1); SODIUM LEVEL 143 MEQ/L (136-145); TOTAL PROTEIN 7.6 GM/DL (6.4-8.2); TRIGLYCERIDES LEVEL 201 MG/DL (<150)
== END ==
LOC: M SFHCCLAY 09:41
PROVIDERS: ATTEND Family Medicine
DX: I10 Essential (primary) hypertension (principal); E78.2 Mixed hyperlipidemia

== ENCOUNTER 2016-06-20 11:46 | Emergency (ER) | payer OTHER ==
[~2016-06-20] VITALS: Ht 167.6 cm; Wt 86.2 kg
[2016-06-20] MEDS ORDERED: LOSA50TA21 PO (11:59)
[2016-06-20] MEDS ORDERED: SING10TA32 PO (11:59)
[2016-06-20] MEDS ORDERED: ZYRT10TA2 PO (11:59)
[2016-06-20] MEDS ORDERED: METOPROLOL 5 MG/5 ML VIAL IV SCH (13:00)
--- NOTE | 2016-06-20 13:32 | REP ---
CHEST PA AND LATERAL: 06/20/2006. Comparison: 04/20/2016 portable chest. Clinical history: Hypertension. Findings: Two-view show the lung sotelo well inflated and clear. The heart, mediastinal and hilar contours are normal. The airway is intact and the aorta is unremarkable. The bony thorax shows no focal lesions. No free air under the diaphragm. Impression: 1. No acute cardiopulmonary change. Stable chest. Signed by Hayden Ferrari MD 06/20/2016 05:07 P
[2016-06-20 13:48] LABS: BASO % 0.7 % (0.0-1.0); EOS # 0.1 K/mm3 (0.0-0.50); EOS % 1.1 % (0.0-3.0); LARGE UNSTAINED CELL # 0.1 K/mm3 (0.0-0.4); LARGE UNSTAINED CELL % 1.8 % (0.0-4.0); LYMPH # 1.2 K/mm3 (1.5-4.5); LYMPH % 18.6 % (24.0-44.0); MEAN CORPUSCULAR HEMOGLOBIN 31.3 pg (27.0-33.0); MEAN CORPUSCULAR HGB CONC 33.2 g/dl (32.0-36.5); MEAN CORPUSCULAR VOLUME 94.3 fl (80.0-96.0); MONO # 0.3 K/mm3 (0.0-0.8); MONO % 5.2 % (0.0-5.0); NEUTROPHILS # 4.7 K/mm3 (1.8-7.7); NEUTROPHILS % 72.6 % (36.0-66.0); PLATELET COUNT, AUTOMATED 270 k/mm3 (150-450); RED CELL DISTRIBUTION WIDTH 13.5 % (11.5-14.5); WHITE BLOOD COUNT 6.5 K/mm3 (4.0-10.0)
[2016-06-20 14:01] LABS: ANION GAP 6 MEQ/L (8-16); BLOOD UREA NITROGEN 13 MG/DL (7-18); CALCIUM LEVEL 9.5 MG/DL (8.5-10.1); CARBON DIOXIDE LEVEL 27 MEQ/L (21-32); CHLORIDE LEVEL 105 MEQ/L (98-107); CREATININE FOR GFR 0.87 MG/DL (0.55-1.02); GLOMERULAR FILTRATION RATE > 60.0 (>58); GLUCOSE, FASTING 107 MG/DL (70-105); POTASSIUM SERUM 4.5 MEQ/L (3.5-5.1); SODIUM LEVEL 138 MEQ/L (136-145)
[2016-06-20 14:55] VITALS: BP 140/89
--- NOTE | 2016-06-20 18:10 | ECGEPIP ---
Stationary ECG Study [facility] - ED Test Date: 2016-06-20 Pat Name: ANITA BRITO Department: Room: - Gender: F Director Of Cloud Services: ct : 1970 Requested By: KALIN ROSALES Order Number: [id number] Reading MD: Jaylon Treviño Measurements Intervals [place] Rate: 55 P: 49 OK: 154 QRS: 60 QRSD: 95 T: 24 QT: 408 QTc: 390 Interpretive Statements SINUS BRADYCARDIA Electronically Signed On 06-20-2016 18:10:35 EDT by Jaylon Treviño
== END 2016-06-20 14:45 | disposition home or self-care (01) ==
LOC: M ED 12:55
DX: I10 Essential (primary) hypertension (principal); R00.1 Bradycardia, unspecified; J30.89 Other allergic rhinitis; Z79.899 Other long term (current) drug therapy; Z87.891 Personal history of nicotine dependence; Z82.49 Family history of ischemic heart disease and other diseases of the circulatory system

== ENCOUNTER → 2016-09-20 | Outpatient (CLI) | payer OTHER ==
[~2016-09-20] MED LIST: LOSA50TA21 PO; SING10TA32 PO; ZYRT10TA2 PO
--- NOTE | 2016-09-20 09:50 | REP ---
Clinical: Trauma. Pain. Technique: AP, lateral, bilateral oblique views of the right third digit. Findings: No obvious acute fracture dislocation. Skeletal structures, joint spaces, and surrounding soft tissues are relatively normal for age. Impression: No definite acute fracture dislocation. Signed by Monico Kraft MD 09/20/2016 09:42 A
== END ==
LOC: M WUC 09:24
PROVIDERS: ATTEND Physician Assistant
DX: M79.644 Pain in right finger(s) (principal)

== ENCOUNTER → 2017-03-22 | Outpatient (CLI) | payer OTHER | LOC: M WUC 13:25 | DX: J02.9 Acute pharyngitis, unspecified (principal) ==

== ENCOUNTER → 2018-10-04 | Outpatient (REF) | payer OTHER ==
[~2018-10-04] MED LIST changes: +CEFD1CAP8 PO; +FLUN25SP; +LEVA0.636; +LOSA25TA14 PO; -LOSA50TA21 PO; +LOSA50TA5 PO; +PROAAER10; +ZYRT10CA5 PO; -ZYRT10TA2 PO
[2018-10-04 16:48] LABS: BLOOD UREA NITROGEN 14 MG/DL (7-18); CALCIUM LEVEL 9.5 MG/DL (8.5-10.1); CARBON DIOXIDE LEVEL 30 MEQ/L (21-32); CHLORIDE LEVEL 107 MEQ/L (98-107); CHOLESTEROL LEVEL 236 MG/DL (<200); CHOLESTEROL RISK RATIO 3.687 (<5); GLOMERULAR FILTRATION RATE > 60.0 (>58); GLUCOSE, FASTING 97 MG/DL (70-100); HDL CHOLESTEROL 64 MG/DL (>40); LDL CHOLESTEROL 147 MG/DL (<100); NON-HDL-C 172 MG/DL; POTASSIUM SERUM 5.1 MEQ/L (3.5-5.1); SODIUM LEVEL 140 MEQ/L (136-145); TRIGLYCERIDES LEVEL 126 MG/DL (<150)
[2018-10-04 16:51] LABS: FREE T4 0.74 NG/DL (0.76-1.46); THYROID STIMULATING HORMONE 1.02 uIU/ML (0.358-3.740)
[2018-10-04 17:20] LABS: MALB URINE SIEMENS 10.5 MG/L; MAU/CREAT RATIO 9.4 MCG/MG (0.0-30.0)
== END ==
LOC: M SFHCCLAY 11:24
PROVIDERS: ATTEND Family Medicine
DX: E78.2 Mixed hyperlipidemia (principal); I10 Essential (primary) hypertension; Z13.29 Encounter for screening for other suspected endocrine disorder

== ENCOUNTER → 2019-05-08 | Outpatient (CLI) | payer OTHER ==
--- NOTE | 2019-05-08 11:35 | REP ---
Clinical: Left groin pain. Technique: Neutral and frog lateral views of the left hip. Findings: Age-related changes include very subtle increased sclerosis to the acetabular roof with minimal marginal spurring. Joint space is within normal limits. No acute fracture dislocation. Impression: Essentially age-appropriate examination. Electronically Signed by Monico Kraft MD 05/08/2019 11:26 A
== END ==
LOC: M WUC 11:09
PROVIDERS: ATTEND Family Medicine
DX: M25.552 Pain in left hip (principal)

== ENCOUNTER → 2019-11-27 | Outpatient (REF) | payer OTHER ==
[2019-11-27 16:15] LABS: HEMATOCRIT 41.9 % (36.0-47.0); HEMOGLOBIN 13.6 g/dl (12.0-15.5); LYMPH % 32.6 % (24.0-44.0); MEAN CORPUSCULAR HEMOGLOBIN 31.1 pg (27.0-33.0); MEAN CORPUSCULAR HGB CONC 32.5 g/dl (32.0-36.5); MEAN CORPUSCULAR VOLUME 95.7 fl (80.0-96.0); MONO % 10.5 % (0.0-5.0); NEUTROPHILS % 52.8 % (36.0-66.0); PLATELET COUNT, AUTOMATED 267 10^3/uL (150-450); RED BLOOD COUNT 4.38 10^6/uL (4.00-5.40); WHITE BLOOD COUNT 4.1 10^3/uL (4.0-10.0)
[2019-11-27 16:16] LABS: EOS # 0.1 10^3/uL (0.0-0.5); EOS % 2.9 % (0.0-3.0); LYMPH # 1.3 10^3/uL (1.5-5.0); MONO # 0.4 10^3/uL (0.0-0.8); NEUTROPHILS # 2.2 10^3/uL (1.5-8.5)
[2019-11-27 17:10] LABS: BLOOD UREA NITROGEN 12 MG/DL (7-18); CARBON DIOXIDE LEVEL 29 MEQ/L (21-32); CHLORIDE LEVEL 108 MEQ/L (98-107); CREATININE FOR GFR 0.88 MG/DL (0.55-1.30); GLOMERULAR FILTRATION RATE > 60.0 (>51); GLUCOSE, FASTING 111 MG/DL (70-100); POTASSIUM SERUM 4.6 MEQ/L (3.5-5.1); SODIUM LEVEL 141 MEQ/L (136-145)
[2019-11-27 17:11] LABS: ALBUMIN 3.9 GM/DL (3.2-5.2); ALT/SGPT 31 U/L (12-78); BILIRUBIN,TOTAL 0.3 MG/DL (0.2-1.0); CALCIUM LEVEL 9.3 MG/DL (8.5-10.1); CHOLESTEROL LEVEL 229 MG/DL (<200); CHOLESTEROL RISK RATIO 5.204 (<5); HDL CHOLESTEROL 44 MG/DL (>40); LDL CHOLESTEROL 151 MG/DL (<100); NON-HDL-C 185 MG/DL; RHEUMATOID FACTOR QUANT < 10.0 IU/ML (<15.0); TOTAL PROTEIN 7.4 GM/DL (6.4-8.2); TRIGLYCERIDES LEVEL 168 MG/DL (<150)
[2019-11-27 20:47] LABS: ERYTHROCYTE SEDIMENTATION RATE 15 mm/hr (0-30)
[2019-11-30 16:07] LABS: ANTINUCLEAR ANTIBODIES DIRECT Negative (Negative); CYCLIC CITRULLINATED PEPTIDE 4 units (0-19)
== END ==
LOC: M LABDRAWC 08:06
PROVIDERS: ATTEND Family Medicine
DX: I10 Essential (primary) hypertension (principal); E78.00 Pure hypercholesterolemia, unspecified; M25.50 Pain in unspecified joint

== ENCOUNTER → 2020-05-10 | Outpatient (CLI) | payer OTHER ==
--- NOTE | 2020-05-10 20:43 | REP ---
INDICATION: N95.0 PMB COMPARISON: None. TECHNIQUE: Transabdominal pelvic ultrasound followed by transvaginal examination for better evaluation of the endometrium and adnexa with color Doppler evaluation of the ovaries. FINDINGS: Bladder is unremarkable and measures 9.6 x 11.0 x 7.0 cm. Normal anteverted uterus measures 7.7 x 3.9 x 4.9 cm. The endometrial complex measures 4.2 mm thickness. No discrete uterine or endometrial abnormalities are appreciated. Few incidental nabothian cysts measuring up to 2 mm. Bilateral ovaries are normal in appearance and vascularity without evidence for torsion. Right ovary measures 1.9 x 1.0 x 2.4 cm; R I = 0.5. Left ovary measures 1.8 x 1.7 x 1.7 cm; R I = 0.6. No pelvic fluid or adnexal mass lesion. IMPRESSION: Normal pelvic ultrasound. <Electronically signed by Monico Kraft > 05/10/20 [id number]
== END ==
LOC: M WHC 10:49
PROVIDERS: ATTEND Advanced Practice Midwife
DX: N95.0 Postmenopausal bleeding (principal)

== ENCOUNTER → 2020-05-28 | Outpatient (CLI) | payer OTHER ==
--- NOTE | 2020-05-28 14:19 | REP ---
INDICATION: LEFT ELBOW PAIN. COMPARISON: None. TECHNIQUE: AP and lateral views of the left elbow. FINDINGS: Osseous structures, joint spaces, and surrounding soft tissues are normal. IMPRESSION: Normal left elbow radiographs. <Electronically signed by Monico Kraft > 05/28/20 [id number]
--- NOTE | 2020-05-28 14:20 | REP ---
INDICATION: LEFT ELBOW PAIN. COMPARISON: None. TECHNIQUE: Internal rotation, external rotation, axillary and Y-views of the left shoulder. FINDINGS: Age-related cortical irregularity at the acromioclavicular joint appreciated. The subacromial space is normal. The glenohumeral joint is normal. No periarticular calcifications or loose bodies are identified. No evidence for fracture or dislocation. IMPRESSION: Mild age-related changes <Electronically signed by Monico Kraft > 05/28/20 [id number]
== END ==
LOC: M SOG 01:07
PROVIDERS: ATTEND Orthopaedic Surgery Sports Medicine
DX: M77.12 Lateral epicondylitis, left elbow (principal); M75.42 Impingement syndrome of left shoulder

== ENCOUNTER → 2020-06-18 | Outpatient (REF) | payer OTHER | LOC: M PLALAB 14:14 | PROVIDERS: ATTEND Obstetrics & Gynecology | DX: N95.0 Postmenopausal bleeding (principal) ==

== ENCOUNTER → 2020-06-18 | Outpatient (REF) | payer OTHER | LOC: M SFHCWAGY 19:09 | PROVIDERS: ATTEND Obstetrics & Gynecology | DX: N95.0 Postmenopausal bleeding (principal) ==

== ENCOUNTER → 2020-07-27 | Outpatient (CLI) | payer OTHER | LOC: M LABSMTC 12:51 | PROVIDERS: ATTEND Pediatrics | DX: Z20.822 Contact with and (suspected) exposure to COVID-19 (principal) ==

== ENCOUNTER → 2020-11-04 | Outpatient (CLI) | payer OTHER ==
[2020-11-04 17:21] LABS: BASO # 0.1 10^3/uL (0.0-0.2); BASO % 0.8 % (0.0-1.0); EOS # 0.1 10^3/uL (0.0-0.5); EOS % 2.2 % (0.0-3.0); HEMATOCRIT 38.4 % (36.0-47.0); HEMOGLOBIN 12.5 g/dl (12.0-15.5); LYMPH # 1.9 10^3/uL (1.5-5.0); LYMPH % 32.2 % (24.0-44.0); MEAN CORPUSCULAR HEMOGLOBIN 31.3 pg (27.0-33.0); MEAN CORPUSCULAR HGB CONC 32.6 g/dl (32.0-36.5); MEAN CORPUSCULAR VOLUME 96.2 fl (80.0-96.0); MONO # 0.7 10^3/uL (0.0-0.8); MONO % 11.2 % (2.0-8.0); NEUTROPHILS # 3.2 10^3/uL (1.5-8.5); NEUTROPHILS % 53.4 % (36.0-66.0); PLATELET COUNT, AUTOMATED 266 10^3/uL (150-450); RED BLOOD COUNT 3.99 10^6/uL (4.00-5.40); WHITE BLOOD COUNT 5.9 10^3/uL (4.0-10.0)
[2020-11-04 17:44] LABS: ALBUMIN 3.8 GM/DL (3.2-5.2); ALT/SGPT 35 U/L (12-78); BILIRUBIN,TOTAL 0.2 MG/DL (0.2-1.0); BLOOD UREA NITROGEN 15 MG/DL (7-18); CALCIUM LEVEL 8.9 MG/DL (8.5-10.1); CARBON DIOXIDE LEVEL 30 MEQ/L (21-32); CHLORIDE LEVEL 107 MEQ/L (98-107); CHOLESTEROL LEVEL 239 MG/DL (<200); CREATININE FOR GFR 0.81 MG/DL (0.55-1.30); FREE T4 0.78 NG/DL (0.76-1.46); GLOMERULAR FILTRATION RATE > 60.0 (>51); GLUCOSE, FASTING 96 MG/DL (70-100); HDL CHOLESTEROL 58 MG/DL (>40); LDL CHOLESTEROL 158 MG/DL (<100); NON-HDL-C 181 MG/DL; POTASSIUM SERUM 4.2 MEQ/L (3.5-5.1); SODIUM LEVEL 140 MEQ/L (136-145); THYROID STIMULATING HORMONE 0.898 uIU/ML (0.358-3.740); TRIGLYCERIDES LEVEL 116 MG/DL (<150)
[2020-11-04 17:46] LABS: TOTAL T3 126.2 NG/DL (60.0-181.0)
== END ==
LOC: M WUC 15:42
PROVIDERS: ATTEND Family Medicine
DX: E78.2 Mixed hyperlipidemia (principal); I10 Essential (primary) hypertension; Z13.29 Encounter for screening for other suspected endocrine disorder

== ENCOUNTER → 2021-02-02 | Outpatient (REF) | payer OTHER | LOC: M SFHCCLAY 14:25 | PROVIDERS: ATTEND Physician Assistant | DX: R05.9 Cough, unspecified (principal) ==

== ENCOUNTER → 2021-03-04 | Outpatient (REF) | payer OTHER ==
[~2021-03-04] MED LIST changes: -CEFD1CAP8 PO; +CEFD300C41 PO; +LOSA25TA13 PO; -LOSA25TA14 PO
== END ==
LOC: M SFHCCLAY 14:17
PROVIDERS: ATTEND Physician Assistant
DX: R09.81 Nasal congestion (principal)

== ENCOUNTER → 2021-04-04 | Outpatient (CLI) | payer OTHER | LOC: M LABSMTC 11:33 | PROVIDERS: ATTEND Family Medicine | DX: Z20.822 Contact with and (suspected) exposure to COVID-19 (principal) | CPT/HCPCS: C9803; U0003 ==

== ENCOUNTER → 2021-07-12 | Outpatient (CLI) | payer OTHER | LOC: M SOG 14:26 | PROVIDERS: ATTEND Physician Assistant | DX: M25.532 Pain in left wrist (principal) ==

== ENCOUNTER → 2021-07-26 | Outpatient (CLI) | payer OTHER | LOC: M SOG 09:05 | PROVIDERS: ATTEND Physician Assistant | DX: M25.522 Pain in left elbow (principal); M25.571 Pain in right ankle and joints of right foot ==

== ENCOUNTER → 2021-08-12 | Outpatient (CLI) | payer OTHER | LOC: M SOG 09:25 | PROVIDERS: ATTEND Orthopaedic Surgery Hand Surgery | DX: S52.122D Displaced fracture of head of left radius, subsequent encounter for closed fracture with routine healing (principal) ==

== ENCOUNTER → 2021-09-05 | Outpatient (CLI) | payer OTHER | LOC: M WHC 07:12 | PROVIDERS: ATTEND Obstetrics & Gynecology | DX: N95.0 Postmenopausal bleeding (principal); N88.8 Other specified noninflammatory disorders of cervix uteri ==

== ENCOUNTER → 2021-11-04 | Outpatient (REF) | payer OTHER | LOC: M PLALAB 15:47 | PROVIDERS: ATTEND Obstetrics & Gynecology | DX: N95.0 Postmenopausal bleeding (principal) ==

== ENCOUNTER → 2021-12-19 | Outpatient (REF) | payer OTHER | LOC: M SFHCCLAY 13:58 | PROVIDERS: ATTEND Physician Assistant | DX: R09.81 Nasal congestion (principal) ==

== ENCOUNTER → 2022-02-20 | Outpatient (CLI) | payer OTHER | LOC: M CLY 14:37 | PROVIDERS: ATTEND Family Medicine | DX: M25.461 Effusion, right knee (principal); M25.562 Pain in left knee ==

== ENCOUNTER → 2022-02-20 | Outpatient (REF) | payer OTHER ==
[2022-02-20 17:33] LABS: BASO # 0.1 10^3/uL (0.0-0.2); BASO % 1.1 % (0.0-1.0); EOS # 0.2 10^3/uL (0.0-0.5); EOS % 2.6 % (0.0-3.0); HEMATOCRIT 39.7 % (36.0-47.0); HEMOGLOBIN 12.8 g/dl (12.0-15.5); LYMPH # 2.1 10^3/uL (1.5-5.0); LYMPH % 34.9 % (24.0-44.0); MEAN CORPUSCULAR HGB CONC 32.2 g/dl (32.0-36.5); MEAN CORPUSCULAR VOLUME 96.1 fl (80.0-96.0); MONO # 0.6 10^3/uL (0.0-0.8); MONO % 9.7 % (2.0-8.0); NEUTROPHILS # 3.2 10^3/uL (1.5-8.5); NEUTROPHILS % 51.5 % (36.0-66.0); PLATELET COUNT, AUTOMATED 285 10^3/uL (150-450); RED BLOOD COUNT 4.13 10^6/uL (4.00-5.40); WHITE BLOOD COUNT 6.1 10^3/uL (4.0-10.0)
[2022-02-20 18:16] LABS: CHLORIDE LEVEL 103 MMOL/L (98-107); POTASSIUM SERUM 4.8 MMOL/L (3.5-5.1); SODIUM LEVEL 140 MMOL/L (136-145)
[2022-02-20 18:17] LABS: ALBUMIN 3.5 G/DL (3.2-5.2); CARBON DIOXIDE LEVEL 29 MMOL/L (20-31)
[2022-02-20 18:21] LABS: BLOOD UREA NITROGEN 12 MG/DL (9-23); GLUCOSE, FASTING 112 MG/DL (60-100); URIC ACID 5.5 MG/DL (3.1-7.8)
[2022-02-20 18:22] LABS: TRIGLYCERIDES LEVEL 160 MG/DL (<150)
[2022-02-20 18:23] LABS: ALKALINE PHOSPHATASE 99 U/L (46-116); BILIRUBIN,TOTAL 0.2 MG/DL (0.3-1.2); CREATININE FOR GFR 0.82 MG/DL (0.55-1.30); GLOMERULAR FILTRATION RATE > 60.0 (>51); TOTAL PROTEIN 6.6 G/DL (5.7-8.2)
[2022-02-20 18:24] LABS: ALT/SGPT 24 U/L (7.0-40); AST/SGOT 20 U/L (<34); HDL CHOLESTEROL 43.2 MG/DL (>40)
[2022-02-20 18:25] LABS: CHOLESTEROL LEVEL 219 MG/DL (<200); CHOLESTEROL RISK RATIO 5.06 (<5); LDL CHOLESTEROL 143.8 MG/DL (<100); NON-HDL-C 176 MG/DL
[2022-02-20 18:34] LABS: ERYTHROCYTE SEDIMENTATION RATE 27 mm/hr (0-30)
[2022-02-22 23:07] LABS: ANA (HEP2) Negative (.); CYCLIC CITRULLINATED PEPTIDE 4 units (0-19)
== END ==
LOC: M SFHCCLAY 14:26
PROVIDERS: ATTEND Family Medicine
DX: M25.562 Pain in left knee (principal); I10 Essential (primary) hypertension; E78.2 Mixed hyperlipidemia; K21.9 Gastro-esophageal reflux disease without esophagitis

== ENCOUNTER → 2022-08-16 | Outpatient (CLI) | payer OTHER ==
[~2022-08-16] MED LIST changes: +MONT-5 PO; -SING10TA32 PO
== END ==
LOC: M PLAIMG 06:41
PROVIDERS: ATTEND Family Medicine
DX: M25.461 Effusion, right knee (principal)

== ENCOUNTER → 2023-04-19 | Outpatient (REF) | payer OTHER ==
[~2023-04-19] MED LIST changes: +CEFD1CAP9 PO; -CEFD300C41 PO
[2023-04-19 13:31] LABS: HEMATOCRIT 42.3 % (36.0-47.0); HEMOGLOBIN 14.1 g/dl (12.0-15.5); MEAN CORPUSCULAR HEMOGLOBIN 31.6 pg (27.0-33.0); MEAN CORPUSCULAR HGB CONC 33.3 g/dl (32.0-36.5); MEAN CORPUSCULAR VOLUME 94.8 fl (80.0-96.0); PLATELET COUNT, AUTOMATED 233 10^3/uL (150-450); RED BLOOD COUNT 4.46 10^6/uL (4.00-5.40); WHITE BLOOD COUNT 5.6 10^3/uL (4.0-10.0)
[2023-04-19 13:53] LABS: ALKALINE PHOSPHATASE 85 U/L (46-116); ALT/SGPT 25 U/L (7.0-40); AST/SGOT 20 U/L (<34); BILIRUBIN,TOTAL 0.5 MG/DL (0.3-1.2); BLOOD UREA NITROGEN 23 MG/DL (9-23); CALCIUM LEVEL 9.6 MG/DL (8.5-10.1); CARBON DIOXIDE LEVEL 31 MMOL/L (20-31); CHLORIDE LEVEL 108 MMOL/L (98-107); CHOLESTEROL LEVEL 220 MG/DL (<200); CHOLESTEROL RISK RATIO 3.58 (<5); CREATININE FOR GFR 0.76 MG/DL (0.55-1.30); GLOMERULAR FILTRATION RATE > 60.0 (>51); GLUCOSE, FASTING 110 MG/DL (60-100); HDL CHOLESTEROL 61.3 MG/DL (>40); LDL CHOLESTEROL 139.5 MG/DL (<100); MAGNESIUM LEVEL 1.8 MG/DL (1.8-2.4); NON-HDL-C 158.7 MG/DL; POTASSIUM SERUM 4.7 MMOL/L (3.5-5.1); SODIUM LEVEL 143 MMOL/L (136-145); TOTAL PROTEIN 7.2 G/DL (5.7-8.2); TRIGLYCERIDES LEVEL 96 MG/DL (<150)
== END ==
LOC: M LABWUC 12:08
PROVIDERS: ATTEND Family Medicine
DX: I10 Essential (primary) hypertension (principal); E78.2 Mixed hyperlipidemia; K21.9 Gastro-esophageal reflux disease without esophagitis

== ENCOUNTER → 2023-05-23 | Outpatient (REF) | payer OTHER | LOC: M SFHCCLAY 11:13 | PROVIDERS: ATTEND Physician Assistant | DX: J02.9 Acute pharyngitis, unspecified (principal) ==

== ENCOUNTER → 2023-06-22 | Outpatient (CLI) | payer OTHER | LOC: M WHC 15:41 | PROVIDERS: ATTEND Obstetrics & Gynecology | DX: N95.0 Postmenopausal bleeding (principal) ==

== ENCOUNTER → 2023-11-01 | Outpatient (REF) | payer OTHER ==
[~2023-11-01] MED LIST changes: +BIOT1CAP2 PO; +GNPTAB36 PO
[2023-11-01 11:25] LABS: HEMATOCRIT 42.4 % (36.0-47.0); HEMOGLOBIN 13.9 g/dl (12.0-15.5); MEAN CORPUSCULAR HEMOGLOBIN 31.7 pg (27.0-33.0); MEAN CORPUSCULAR HGB CONC 32.8 g/dl (32.0-36.5); MEAN CORPUSCULAR VOLUME 96.8 fl (80.0-96.0); PLATELET COUNT, AUTOMATED 238 10^3/uL (150-450); RED BLOOD COUNT 4.38 10^6/uL (4.00-5.40); WHITE BLOOD COUNT 5.2 10^3/uL (4.0-10.0)
[2023-11-01 11:49] LABS: ALBUMIN 4.1 G/DL (3.2-5.2); ALKALINE PHOSPHATASE 88 U/L (46-116); ALT/SGPT 22 U/L (7.0-40); AST/SGOT 16 U/L (<34); BILIRUBIN,TOTAL 0.3 MG/DL (0.3-1.2); BLOOD UREA NITROGEN 24 MG/DL (9-23); CALCIUM LEVEL 9.6 MG/DL (8.5-10.1); CARBON DIOXIDE LEVEL 31 MMOL/L (20-31); CHLORIDE LEVEL 107 MMOL/L (98-107); CREATININE FOR GFR 0.74 MG/DL (0.55-1.30); GLOMERULAR FILTRATION RATE > 60.0 (>51); GLUCOSE, FASTING 97 MG/DL (60-100); POTASSIUM SERUM 4.9 MMOL/L (3.5-5.1); SODIUM LEVEL 141 MMOL/L (136-145); TOTAL PROTEIN 6.8 G/DL (5.7-8.2)
== END ==
LOC: M SFHCCLAY 08:56
PROVIDERS: ATTEND Family Medicine
DX: I10 Essential (primary) hypertension (principal)

== ENCOUNTER 2023-11-09 06:09 | Day surgery (SDC) | payer OTHER ==
[~2023-11-09] VITALS: Ht 168.9 cm; Wt 77.0 kg
[2023-11-09] MEDS ORDERED: LR 1,000 ML IV SCH (06:15)
[2023-11-09 07:04] LABS: HEMATOCRIT 40.9 % (36.0-47.0); HEMOGLOBIN 13.6 g/dl (12.0-15.5); MEAN CORPUSCULAR HEMOGLOBIN 32.2 pg (27.0-33.0); MEAN CORPUSCULAR HGB CONC 33.3 g/dl (32.0-36.5); MEAN CORPUSCULAR VOLUME 96.7 fl (80.0-96.0); PLATELET COUNT, AUTOMATED 211 10^3/uL (150-450); RED BLOOD COUNT 4.23 10^6/uL (4.00-5.40); WHITE BLOOD COUNT 4.1 10^3/uL (4.0-10.0)
[2023-11-09] MEDS ORDERED: MIDAZOLAM INJ 2MG/2ML VIAL As Ordered ONE (07:06)
[2023-11-09] MEDS ORDERED: LIDOCAINE 2% 100MG/5ML SDV (FOR ANES.) As Ordered ONE (07:10)
[2023-11-09] MEDS ORDERED: fentaNYL 100 MCG/2 ML INJECTION As Ordered ONE (07:10)
[2023-11-09] MEDS ORDERED: propofoL 200 MG/20 ML VIAL As Ordered ONE (07:12)
[2023-11-09] MEDS ORDERED: ROCURONIUM BROMIDE 50MG/5ML VIAL As Ordered ONE (07:13)
[2023-11-09] MEDS ORDERED: KETOROLAC 60MG 2ML VIAL As Ordered ONE (07:18)
[2023-11-09] MEDS ORDERED: ONDANSETRON 4MG 2ML VIAL As Ordered ONE (07:19)
[2023-11-09] MEDS ORDERED: dexmedeTOMIDine (4MCG/ML)200MCG/50ML BTL (PRECEDEX) As Ordered ONE (07:48)
[2023-11-09] MEDS ORDERED: ACETAMINOPHEN 1000MG 100ML IV BAG As Ordered ONE (07:50)
[2023-11-09] MEDS ORDERED: GLYCOPYRROLATE INJ 0.2 MG/ML 2 ML VIAL As Ordered ONE (08:06)
[2023-11-09] MEDS: SILVER NITRATE APPLICATOR (1 = QTY 10) As Ordered ONE (08:12)
[2023-11-09 08:49] VITALS: BP 134/75; TEMP 96.4; O2SAT 98
== END 2023-11-09 09:15 | disposition home or self-care (01) ==
LOC: M SDC 06:09
PROVIDERS: ATTEND Obstetrics & Gynecology
DX: N95.0 Postmenopausal bleeding (principal); N84.1 Polyp of cervix uteri; N95.2 Postmenopausal atrophic vaginitis; I10 Essential (primary) hypertension; Z79.899 Other long term (current) drug therapy; J45.909 Unspecified asthma, uncomplicated; Z88.0 Allergy status to penicillin
CPT/HCPCS: 36415; 58558; 85027; 86850; 86900; 86901; 88305; J0131; J0665; J1100; J1596; J1885; J2250; J2405

== ENCOUNTER → 2024-10-15 | Outpatient (CLI) | payer OTHER | LOC: M WHC 13:10 | PROVIDERS: ATTEND Obstetrics & Gynecology | DX: Z12.31 Encounter for screening mammogram for malignant neoplasm of breast (principal); N63.25 Unspecified lump in the left breast, overlapping quadrants ==

== ENCOUNTER → 2024-10-15 | Outpatient (REF) | payer OTHER ==
[2024-10-17 14:22] LABS: HPV APTIMA Detected (Not Detected)
== END ==
LOC: M PLALAB 13:27
PROVIDERS: ATTEND Nurse Practitioner Family
DX: Z12.4 Encounter for screening for malignant neoplasm of cervix (principal)
CPT/HCPCS: 87624; G0123

== ENCOUNTER → 2024-11-21 | Outpatient (REF) | payer OTHER ==
[2024-11-21 18:02] LABS: BASO # 0.1 10^3/uL (0.0-0.2); BASO % 1.2 % (0.0-1.0); EOS # 0.1 10^3/uL (0.0-0.5); EOS % 2.5 % (0.0-3.0); LYMPH # 1.9 10^3/uL (1.5-5.0); LYMPH % 37.2 % (24.0-44.0); MONO # 0.5 10^3/uL (0.0-0.8); MONO % 9.5 % (2.0-8.0); NEUTROPHILS # 2.5 10^3/uL (1.5-8.5); NEUTROPHILS % 49.2 % (36.0-66.0); PLATELET COUNT, AUTOMATED 265 10^3/uL (150-450)
[2024-11-21 18:04] LABS: ALT/SGPT 12.0 U/L (7.0-40); AST/SGOT 16.0 U/L (<34); CALCIUM LEVEL 9.5 MG/DL (8.5-10.1); CARBON DIOXIDE LEVEL 31.0 MMOL/L (20-31); CHLORIDE LEVEL 104.0 MMOL/L (98-107); CHOLESTEROL LEVEL 258.0 MG/DL (<200); CHOLESTEROL RISK RATIO 4.68 (<5); CREATININE FOR GFR 0.85 MG/DL (0.55-1.30); GLOMERULAR FILTRATION RATE 80.9 (>51); LDL CHOLESTEROL 180.7 MG/DL (<100); MAGNESIUM LEVEL 2.1 MG/DL (1.8-2.4); NON-HDL-C 202.9 MG/DL; POTASSIUM SERUM 4.3 MMOL/L (3.5-5.1); SODIUM LEVEL 144.0 MMOL/L (136-145); TRIGLYCERIDES LEVEL 111.0 MG/DL (<150)
== END ==
LOC: M SFHCCLAY 14:37
PROVIDERS: ATTEND Family Medicine
DX: I10 Essential (primary) hypertension (principal); K21.9 Gastro-esophageal reflux disease without esophagitis; E78.2 Mixed hyperlipidemia

== ENCOUNTER → 2025-01-21 | Outpatient (REF) | payer OTHER | LOC: M SFHCCLAY 17:17 | PROVIDERS: ATTEND Physician Assistant | DX: J02.9 Acute pharyngitis, unspecified (principal) ==